=== PATIENT | male | born 1960 | race Caucasian/White ===

== ENCOUNTER 2017-03-15 07:25 | Day surgery (SDC) | payer OTHER ==
[~2017-03-15 07:25] MED LIST: Buffered Lidocaine 0.9% SYRIN* 5 ML/SYR SYRINGE INTRADERM ONE; Famotidine IV* 10 MG/ML 2 ML (20 mg) IV ONE; Metoclopramide TAB* 10 MG PO ONE
[2017-03-15] MEDS ORDERED: Buffered Lidocaine 0.9% SYRIN* 5 ML/SYR SYRINGE ONE (07:48)
[2017-03-15] MEDS ORDERED: Famotidine IV* 10 MG/ML 2 ML (20 mg) ONE (07:48)
[2017-03-15] MEDS ORDERED: Metoclopramide TAB* 10 MG ONE (07:48)
[2017-03-15] MEDS ORDERED: Clindamycin 900 MG IVPREMIX(* 900 MG/50 ML SDV IV ONE (07:48)
[2017-03-15] MEDS ORDERED: Rocuronium* 10 MG/ML VIAL ONE (08:17)
[2017-03-15] MEDS ORDERED: ROPIVACAINE 5 MG/ML 30 ML BTL (0.5%) ONE (08:17)
[2017-03-15] MEDS ORDERED: Lidocaine 2% PF * 5 ML VIAL ONE (08:17)
[2017-03-15] MEDS ORDERED: Ondansetron INJ* 2 MG/ML VIAL ONE (08:17)
[2017-03-15] MEDS ORDERED: Ketorolac INJ* 30 MG/ML 1 ML VIAL ONE (08:17)
[2017-03-15] MEDS ORDERED: Propofol* 10 MG/ML 20 ML BTL IV PUSH ONE (08:17)
[2017-03-15] MEDS ORDERED: Dexamethasone IV* 4 MG/ML 1 ML (4 MG) ONE (08:17)
[2017-03-15] MEDS ORDERED: fentaNYL* 50 MCG/ML 5 ML VIAL (250 MCG VIAL) ONE (08:17)
[2017-03-15] MEDS ORDERED: KETAMINE HCL* 50 MG/ML 10 ML VIAL ONE (08:18)
[2017-03-15] MEDS ORDERED: Midazolam* 1 MG/ML 10 ML VIAL (10 MG) ONE (08:18)
[2017-03-15] MEDS ORDERED: EPINEPHrine AMP 1 MG/ML ONE ×2 (10:21→10:24)
[2017-03-15] MEDS ORDERED: oxyCODONE/Acetamin 5/325 MG* TAB PO PRN (11:12)
[2017-03-15] MEDS ORDERED: Ondansetron INJ* 2 MG/ML VIAL IV PRN (11:12)
[2017-03-15] MEDS ORDERED: DiMENhydriNATE IV* 50 MG/ML VIAL IV PUSH PRN (11:12)
[2017-03-15] MEDS ORDERED: fentaNYL* 50 MCG/ML 2 ML VIAL (100 MCG VIAL) ONE ×3 (13:08→16:15)
[2017-03-15] MEDS ORDERED: EPHEDrine (Pressors)* 50 MG/ML VIAL ONE (13:08)
[2017-03-15] MEDS ORDERED: HYDROmorphone INJ* 1 MG/ML CARPUJECT SYRINGE ONE (13:09)
[2017-03-15] MEDS ORDERED: Levalbuterol 1.25MG/0.5ML NEB ONE (15:26)
[2017-03-15] MEDS: fentaNYL* 50 MCG/ML 2 ML VIAL (100 MCG VIAL) IV PRN ×3 (15:38→16:16)
[2017-03-15 18:18] VITALS: BP 155/99
--- NOTE | 2017-04-01 05:00 | OP ---
DATE OF OPERATION: 03/15/17 - [facility] DATE OF : 56 SURGEON: Randy Hinton MD. INTERACTIVE DIGITAL MEDIA SPECIALIST: CHERELLE Demarco. A physician assistant professor in family studies was required for the length of the procedure for positioning and assistance with instrumentation. ANESTHESIOLOGIST: Kevin Renae MD ANESTHESIA: General anesthesia, interscalene block, regional anesthesia. PRE-OP DIAGNOSES: 1. Recurrent right shoulder rotator cuff tendon tear, supraspinatus. 2. History of 2016 rotator cuff repair and superior labral repair by outside physician, Dr. Parsons. 3. Possible right shoulder subscapularis rotator cuff tendon tear, partial width, superior. 4. Right shoulder proximal biceps medial subluxation and likely tendinosis or tear. 5. Right shoulder subacromial impingement. 6. Right shoulder acromioclavicular joint arthritis. 7. Morbid obesity with a BMI of 48.7. 8. Right shoulder stiffness. POST-OP DIAGNOSES: 1. Recurrent right shoulder rotator cuff tendon tear, supraspinatus. 2. Right shoulder rotator cuff tendon tear, anterior infraspinatus. 3. Right shoulder subscapularis rotator cuff tendon tear, superior. 4. Right shoulder proximal biceps medial subluxation and tendinosis. 5. Right shoulder subacromial impingement. 6. Right shoulder acromioclavicular joint arthritis. 7. Morbid obesity with a BMI of 48.7. 8. Right shoulder stiffness. OPERATIVE PROCEDURES: 1. Revision, right shoulder rotator cuff tendon repair, supraspinatus and infraspinatus. 2. Right shoulder arthroscopic rotator cuff repair, subscapularis. 3. Right shoulder arthroscopic subacromial decompression. 4. Right shoulder arthroscopic distal clavicle resection. 5. Right shoulder arthroscopic limited debridement including biceps tendon release, debridement of rotator interval tissue, superior labrum. 6. Right shoulder manipulation under anesthesia. ANTIBIOTICS: Clindamycin 900 mg IV. IV FLUIDS: 2800 cc crystalloid. COMPLICATIONS: None. SPECIMEN: None. ESTIMATED BLOOD LOSS: Minimal. IMPLANTS: Mitek Healix 5.5 mm anchors, triple loaded x2. Fenton 5.5 mm suture anchor, knotless x1. Healix 4.5 mm double loaded suture anchor x1. 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 The patient felt a pop. Afterwards, he had significant anterior shoulder pain that affected him at night and at work. He later described it as anterolateral. The patient had had a rotator cuff repair and superior labrum repair by Dr. Parsons on 08/01/15. Two metal anchors had been placed in the humeral head. The patient had an exam consistent with a rotator cuff retear. He had pain and weakness with supraspinatus stress testing. Pain with infraspinatus stress testing and trace weakness with subscapularis stress testing. Given the patient 's size and bulk, any amount of the weakness of the subscapularis may be concerned for subscapularis tendon tear. MRI preoperatively showed a supraspinatus tear as well as likely some anterior infraspinatus torn and retracted to the apex of the humeral head with clear medial subluxation of the biceps. There was a lot of signal change in the superior aspect of the subscapularis, concerning for rotator cuff tendon tear. There was noted to be 50% fat infiltration in the muscle of the supraspinatus and some less fatty infiltration of the muscles of the infraspinatus and subscapularis. Visualized lateral subacromial spur as well as degenerative changes at the AC joint. I used x-ray and MRI to visualize exactly the location of the metallic anchors placed during the patient's index rotator cuff operation. Discussed with the patient benefits, risks and potential complications of surgery. Risks and potential complications include bleeding, infection, nerve or blood vessel injury, blood clot, hardware failure, rotator cuff tendon re- tear, shoulder pain, stiffness, osteoarthritis. The patient opted to go forward with the procedure. DESCRIPTION OF PROCEDURE: A preoperative written consent was obtained. Operative extremity was marked in the preoperative holding. The patient had an interscalene regional nerve block in the preoperative holding. This took more time than its typical despite excellent work by Dr. Renae. This was likely related to the patient's large size. As I stated before , he has a BMI of 49.4, height 68 inches and weight 325 pounds as noted preoperatively. The patient was taken back to the operating room and placed supine on the operating room table. The patient was sedated and intubated. After a mini time -out has been performed, I assessed the patient's passive range of motion of the right shoulder with him supine. The patient had full forward flexion and external rotation, but his internal rotation was limited to approximately 45 degrees. I manipulated his shoulder, felt some crackling and some movement and obtained full passive internal rotation of the right shoulder. The patient was then placed in the lateral decubitus position. This took some work given his size. We placed him on a thompson bag. Axillary roll was placed. All bony prominences were padded. We used an additional belt and some tape to firmly secure him to the table. The patient's right upper extremity was placed in 15 pounds of traction in the appropriate position of forward flexion and abduction. The right shoulder was prepped with ChloraPrep. Draping was performed. Surgical time-out was performed. I infused approximately 30 cc of normal saline from posterior into the glenohumeral joint. I next established a posterior glenohumeral joint portal using standard technique. I started my diagnostic arthroscopy. There was no significant wear noted of the glenohumeral joint itself. No unstable cartilage lesions. I did note immediately supraspinatus and anterior infraspinatus rotator cuff tear from within the joint. The subscapularis also looked torn. The biceps tendon was clearly medially subluxed quite pronounced. Knowing that I would likely perform a subscapularis repair, instead of a standard anterior portal. I paced an valeria-superior portal. I used this to debride the rotator interval tissue. I used through this portal the scissors and then cautery to cut the proximal biceps off its origin. It was released and retracted. I evaluated the subscapularis with a grasper. There was clear barren subscapularis footprint anteriorly and there was clearly the superior half of the subscapularis rotator cuff tendon was torn and needed to be repaired. In order to visualize better the subscapularis, I created a new posterior protal slightly medial to my original posterior portal. This afforded me slightly better visualization of the subscapularis footprint and the tendon itself. I placed a Mitek plastic 7 mm cannula anterosuperiorly. I debrided the footprint with an arthroscopic shaver as well as arthroscopic venus. Using a grasper, I was able to show that the tendon would nicely lay down on the footprint. It should be noted that I created the anterosuperior portal using direct visualization technique. I next created my anteroinferior portal, just superior to the subscapularis tendon at the appropriate angle for placement of the suture anchor. Through the metal cannula, I punched a hole and then placed a 4.5 mm Healix suture anchor, double loaded. I next brought my sutures through the anterosuperior portal. Using ideal suture passers, I placed two horizontal mattress stitches through the subscapularis tendon and tied those stitches. This produced an excellent subscapularis rotator repair that I was proud of. I next removed my instruments from the glenohumeral joint. I next entered the subacromial space from posterior and anterior. I used the more lateral of my two posterior portal holes through the skin. I placed a 7 mm Mitek plastic cannula anteriorly and my arthroscope posteriorly. When I entered the subacromial space the supraspinatus and anterior aspect of the infraspinatus were noted to be retracted and also elevated significantly. I created a lateral subacromial portal under direct visualization. I entered an arthroscopic shaver from lateral and debrided bursitis throughout the subacromial space. This improved visualization significantly. The inferior aspect of the infraspinatus was obstructing my view somewhat from posteriorly. I created a posterolateral portal that improved my visualization and then I created an anterolateral portal which I decided I would place my future stitches through using an Expressew suture passer. I performed a subacromial decompression, removing a spur from anterolateral and approximately 6 mm of the under-surface of the anterior hook of the acromion. I prepared the humeral head rotator cuff footprint using an arthroscopic shaver and then a venus. I placed a 7 mm Mitek plastic cannula through my anterolateral subacromial portal. I will be placing my stitches through this. I decided that two triple loaded suture anchors would be sufficient for this repair. I placed a percutaneous stab incision superolaterally and placed my anterior suture anchor about midway from medial to lateral, slightly more medial in the rotator cuff footprint. It was adjacent to, but not at the prior anterior metallic anchor that was barely visible. I placed three horizontal mattress stitches in the rotator cuff using the Mitek Expressew suture passer. I tied some of these as I went in order to bring the rotator cuff tendon down to bone, which slightly improved my visualization. I viewed from a variety of position including posterolaterally, laterally and posteriorly to make sure I like the position of my sutures and of the suture anchor. I next placed an additional suture anchor through a separate stab incision, superolaterally. Three horizontal mattress stitches were placed into the supraspinatus in the anterior aspect of the infraspinatus. This suture anchor like the first was placed about one-third of the way from medial to lateral in the rotator cuff footprint. For suture management reasons, I cut some of the stitches after I tied their knots. After having placed my two suture anchors, I probed the repair. It seemed watertight. I rotated the humerus and I liked the stability of the repair. However, there was some looseness lateral to the suture anchors and I thought I could appose more tissue to bone. Therefore, I decided to place a lateral row suture anchor. I took sutures from some of my medial row stitches and placed a 5.5 mm knotless suture anchor laterally. This apposed more tissues to bone. I cut off sutures. I liked the integrity of my repair both by probing and visually. I used an arthroscopic probe to do my probing. With the rotator cuff repair done as well as the subacromial decompression before it, I next assessed the AC joint. I debrided bursitis about the AC joint and then from anterior used an arthroscopic venus to remove 8 mm of the distal aspect of the clavicle. Fluids and instruments were removed from the subacromial space. The skin incisions, many of them for this complex procedure were closed with figure- of-eight stitches using nylon 4-0 suture. Xeroform, 4x4s, ABDs, foam tape. A cooling unit was placed followed by an UltraSling with abduction pillow. The patient was awakened from anesthesia and brought to the PACU. Postoperatively, the patient was to get Percocet for pain control. He received aspirin for two weeks for DVT prophylaxis, Percocet for pain control and Bactrim for infection prophylaxis given the length of the procedure. The patient will follow up with me in 10 to 14 days postoperatively. [id number]/[facility] #: [id number] MTDD
== END 2017-03-15 18:00 | disposition home or self-care (01) ==
LOC: OR 07:25
PROVIDERS: ATTEND Orthopaedic Surgery
DX: S46.011A Strain of muscle(s) and tendon(s) of the rotator cuff of right shoulder, initial encounter (principal); X50.0XXA Overexertion from strenuous movement or load, initial encounter; Y92.9 Unspecified place or not applicable; S46.111A Strain of muscle, fascia and tendon of long head of biceps, right arm, initial encounter; M75.21 Bicipital tendinitis, right shoulder; M25.811 Other specified joint disorders, right shoulder; M25.611 Stiffness of right shoulder, not elsewhere classified; E66.01 Morbid (severe) obesity due to excess calories; Z68.42 Body mass index [BMI] 45.0-49.9, adult; G89.18 Other acute postprocedural pain; I10 Essential (primary) hypertension; K21.9 Gastro-esophageal reflux disease without esophagitis; M79.7 Fibromyalgia; Z88.0 Allergy status to penicillin; Z88.8 Allergy status to other drugs, medicaments and biological substances; J45.909 Unspecified asthma, uncomplicated
CPT/HCPCS: A9270-GY; J0171; J1100; J1170; J1885; J2250; J2405; J2704; J2795; J3010